=== PATIENT | male | born 1990 | race Caucasian/White ===

== ENCOUNTER 2017-05-26 17:31 | Inpatient (IN) | payer BC, MEDICAID ==
[2017-05-26] MEDS ORDERED: Ondansetron 4 MG/2 ML SDV IV PRN (17:56)
[2017-05-26] MEDS ORDERED: metroNIDAZOLE/Normal Saline 500 MG in Premix Bag 1 BAG IV SCH (18:00)
[2017-05-26] MEDS ORDERED: Insulin Aspart 100 Units/ML 3 ML Pen SUBCUT ONE (18:49)
[2017-05-26] MEDS: Sodium Chloride 0.9% 1,000 ML IV SCH (18:52)
[2017-05-26] MEDS: Morphine 2 MG/ML Syringe IVPUSH PRN (19:04)
[2017-05-26] MEDS: Ciprofloxacin in D5W 400 MG in Premix Bag 1 BAG IV SCH ×2 (19:07)
[2017-05-26] MEDS: Insulin Aspart 100 Units/ML 3 ML Pen SUBCUT SCH ×2 (20:34→22:15)
[2017-05-27] MEDS: Insulin Aspart 100 Units/ML 3 ML Pen SUBCUT SCH ×8 (02:33→21:36)
[2017-05-27] MEDS: Ciprofloxacin in D5W 400 MG in Premix Bag 1 BAG IV SCH ×6 (02:34→18:12)
[2017-05-27] MEDS: metroNIDAZOLE/Normal Saline 500 MG in Premix Bag 1 BAG IV SCH ×3 (03:23→19:45)
[2017-05-27] MEDS: Sodium Chloride 0.9% 1,000 ML IV SCH ×2 (05:29→14:17)
[2017-05-27] MEDS: Morphine 2 MG/ML Syringe IVPUSH PRN ×2 (09:26→21:44)
--- NOTE | 2017-05-27 10:00 | PCM.SURGPN ---
- General Info Date of Service: 05/27/17 POD#: 1 Functional Status: Reports: pain controlled - Review of Systems General: Reports: No Symptoms Musculoskeletal: Reports: other (leg pain is better. ) - Patient Data Vitals - most recent: Last Vital Signs Temp 36.4 C 05/27/17 08:00 Pulse 78 05/27/17 08:00 Resp 18 05/27/17 08:00 BP 122/83 05/27/17 08:00 Pulse Ox 97 05/27/17 08:00 Weight - most recent: 79.061 kg I&O - last 24 hours: Intake & Output 05/26/17 05/27/17 05/27/17 22:59 06:59 14:59 Intake Total 934 1133 Balance 934 1133 Lab Results last 24 hrs: Laboratory Results - last 24 hr 05/26/17 05/26/17 05/26/17 Range/Units 16:15 16:15 22:13 WBC 8.9 (4.5-12.0) X10-3/uL RBC 3.75 L (4.30-5.75) x10(6)uL Hgb 11.0 L (11.5-15.5) g/dL Hct 32.0 (30.0-51.3) % MCV 85.4 (80-96) fL MCH 29.2 (27.7-33.6) pg MCHC 34.2 (32.2-35.4) g/dL RDW 12.3 (11.5-15.5) % Plt Count 521 H (125-369) X10(3)uL MPV 7.3 L (7.4-10.4) fL Neut % (Auto) 74.6 (46-82) % Lymph % (Auto) 16.3 (13-37) % [place] % (Auto) 8.1 (4-12) % Eos % (Auto) 1 (1.0-5.0) % Baso % (Auto) 0 (0-2) % Neut # (Auto) 6.7 (1.6-8.3) # Lymph # (Auto) 1.4 (0.6-5.0) # [place] # (Auto) 0.7 (0.0-1.3) # Eos # (Auto) 0.1 (0.0-0.8) # Baso # (Auto) 0.0 (0.0-0.2) # Sodium 126 L (135-145) mmol/L Potassium 5.1 (3.5-5.3) mmol/L Chloride 90 L (100-110) mmol/L Carbon Dioxide 31 H (23-29) mmol/L BUN 20 (5-20) mg/dL Creatinine 1.2 (0.6-1.3) mg/dL Est Cr Clr Drug Dosing 79.72 mL/min Estimated GFR (MDRD) > 60 (>60) BUN/Creatinine Ratio 16.7 (9-20) Glucose 652 H* (80-116) mg/dL POC Glucose 284 H (80-116) mg/dL Calcium 8.6 (8.6-10.2) mg/dL Total Bilirubin 0.1 (0.1-1.3) mg/dL AST 16 (5-27) IU/L ALT 18 (14-26) IU/L Alkaline Phosphatase 179 H (56-112) IU/L Total Protein 8.6 H (6.0-8.0) g/dL Albumin 2.8 L (3.5-5.2) g/dL Globulin 5.8 g/dL Albumin/Globulin Ratio 0.5 05/27/17 05/27/17 05/27/17 Range/Units 02:29 06:12 09:49 WBC (4.5-12.0) X10-3/uL RBC (4.30-5.75) x10(6)uL Hgb (11.5-15.5) g/dL Hct (30.0-51.3) % MCV (80-96) fL MCH (27.7-33.6) pg MCHC (32.2-35.4) g/dL RDW (11.5-15.5) % Plt Count (125-369) X10(3)uL MPV (7.4-10.4) fL Neut % (Auto) (46-82) % Lymph % (Auto) (13-37) % [place] % (Auto) (4-12) % Eos % (Auto) (1.0-5.0) % Baso % (Auto) (0-2) % Neut # (Auto) (1.6-8.3) # Lymph # (Auto) (0.6-5.0) # [place] # (Auto) (0.0-1.3) # Eos # (Auto) (0.0-0.8) # Baso # (Auto) (0.0-0.2) # Sodium (135-145) mmol/L Potassium (3.5-5.3) mmol/L Chloride (100-110) mmol/L Carbon Dioxide (23-29) mmol/L BUN (5-20) mg/dL Creatinine (0.6-1.3) mg/dL Est Cr Clr Drug Dosing mL/min Estimated GFR (MDRD) (>60) BUN/Creatinine Ratio (9-20) Glucose (80-116) mg/dL POC Glucose 157 H D 195 H 213 H (80-116) mg/dL Calcium (8.6-10.2) mg/dL Total Bilirubin (0.1-1.3) mg/dL AST (5-27) IU/L ALT (14-26) IU/L Alkaline Phosphatase (56-112) IU/L Total Protein (6.0-8.0) g/dL Albumin (3.5-5.2) g/dL Globulin g/dL Albumin/Globulin Ratio Med Orders - Current: Current Medications Ciprofloxacin/Dextrose 400 mg/ (Premix) 200 mls @ 200 mls/hr IV Q[facility]H [facility] Last Admin: 05/27/17 09:41 Dose: 200 mls/hr Sodium Chloride (Normal Saline) 1,000 mls @ 150 mls/hr IV ASDIRECTED [facility] Last Admin: 05/27/17 05:29 Dose: 150 mls/hr Metronidazole 500 mg/ Premix 100 mls @ 100 mls/hr IV Q8H [facility] Last Admin: 05/27/17 03:23 Dose: 100 mls/hr Insulin Aspart (Novolog) 0 unit SUBCUT Q4H [facility] PRN Reason: Protocol Last Admin: 05/27/17 09:51 Dose: 6 units Morphine Sulfate (Morphine) 2 mg IVPUSH Q2H PRN PRN Reason: Pain (severe 7-10) Last Admin: 05/27/17 09:26 Dose: 2 mg Ondansetron HCl (Zofran) 4 mg IV Q6H PRN PRN Reason: Nausea/Vomiting Sodium Chloride (Saline Flush) 10 ml FLUSH ASDIRECTED PRN PRN Reason: Keep Vein Open Discontinued Medications Metronidazole 500 mg/ Premix 100 mls @ 100 mls/hr IV Q8H [facility] Last Admin: 05/26/17 20:36 Dose: 100 mls/hr Insulin Aspart (Novolog) 20 unit SUBCUT ONETIME ONE Stop: 05/26/17 18:50 Last Admin: 05/26/17 19:02 Dose: 20 units - Exam Wound/Incisions: drainage, erythema improving Lungs: Clear to auscultation, Normal respiratory effort Cardiovascular: Regular Rate, Regular Rhythm - Problem List & Annotations (1) Abscess of left lower extremity excluding foot SNOMED Code(s): 877122656 Code(s): L02.416 - CUTANEOUS ABSCESS OF LEFT LOWER LIMB Status: Acute Current Visit: Yes (2) Type 1 diabetes SNOMED Code(s): 58000223, 35291722 Code(s): E10.9 - TYPE 1 DIABETES MELLITUS WITHOUT COMPLICATIONS Status: Acute Current Visit: Yes Qualifiers: Diabetes mellitus complication detail: with other skin complication - Problem List Review Problem List Initiated/Reviewed/Updated: Yes - My Orders Last 24 Hours: Active Orders 24 hr Category Date Time Status Admission Status [Patient Status] [ADT] Routine ADT 05/26/17 17:36 Active Blood Glucose Check, Bedside [RC] Q4HPRN Care 05/26/17 18:00 Active Diabetes Education [RC] Click to Edit Care 05/26/17 17:57 Active Dressing Change [Wound Care] [RC] QSHIFT Care 05/26/17 20:18 Active Height and Weight [RC] UPON Care 05/26/17 17:56 Active Intake and Output [RC] 06,14,22 Care 05/26/17 17:57 Active Notify Provider Vital Signs [RC] ASDIRECTED Care 05/26/17 17:57 Active Notify Provider [RC] PRN Care 05/26/17 17:59 Active Oxygen Therapy [RC] PRN Care 05/26/17 17:56 Active Up ad Frida [RC] ASDIRECTED Care 05/26/17 17:56 Active VTE/DVT Education [RC] Per Unit Routine Care 05/26/17 17:56 Active Vital Signs [RC] 00,04,08,12,16,20 Care 05/26/17 17:56 Active Nothing per Oral Now Diet [DIET] Diet 05/26/17 Dinner Active Ciprofloxacin in D5W [Cipro in D5W 400 MG/200 ML] 400 Med 05/26/17 18:00 Active mg Premix Bag 1 bag IV Q8H Insulin Aspart [NovoLOG] Med 05/26/17 18:00 Active See Protocol SUBCUT Q4H Morphine Med 05/26/17 17:56 Active 2 mg IVPUSH Q2H PRN Ondansetron [Zofran] Med 05/26/17 17:56 Active 4 mg IV Q6H PRN Sodium Chloride 0.9% [Normal Saline] 1,000 ml Med 05/26/17 18:15 Active IV ASDIRECTED Sodium Chloride 0.9% [Saline Flush] Med 05/26/17 22:00 Active 10 ml FLUSH ASDIRECTED PRN metroNIDAZOLE/Normal Saline [Flagyl 500 MG in NS 100 ML Med 05/27/17 03:00 Active ] 500 mg Premix Bag 1 bag IV Q8H Glucose Management Sub Q Reflex [OM.PC] Click to Edit Oth 05/26/17 17:56 Ordered Resuscitation Status Routine Resus Stat 05/26/17 17:56 Ordered Medication Orders Ciprofloxacin/Dextrose 400 mg/ (Premix) 200 mls @ 200 mls/hr IV Q8H [facility] Last Admin: 05/27/17 09:41 Dose: 200 mls/hr Infusion: 05/27/17 03:34 Dose: 200 mls/hr Admin: 05/27/17 02:34 Dose: 200 mls/hr Infusion: 05/26/17 20:07 Dose: 200 mls/hr Admin: 05/26/17 19:07 Dose: 200 mls/hr Sodium Chloride (Normal Saline) 1,000 mls @ 150 mls/hr IV ASDIRECTED [facility] Last Admin: 05/27/17 05:29 Dose: 150 mls/hr Infusion: 05/27/17 01:33 Dose: 150 mls/hr Admin: 05/26/17 18:52 Dose: 150 mls/hr Metronidazole 500 mg/ Premix 100 mls @ 100 mls/hr IV Q8H [facility] Last Admin: 05/27/17 03:23 Dose: 100 mls/hr Insulin Aspart (Novolog) 0 unit SUBCUT Q4H [facility] PRN Reason: Protocol Last Admin: 05/27/17 09:51 Dose: 6 units Admin: 05/27/17 06:13 Dose: 3 units Admin: 05/27/17 02:33 Dose: 3 units Admin: 05/26/17 22:15 Dose: 9 units Admin: 05/26/17 20:34 Dose: Morphine Sulfate (Morphine) 2 mg IVPUSH Q2H PRN PRN Reason: Pain (severe 7-10) Last Admin: 05/27/17 09:26 Dose: 2 mg Admin: 05/26/17 19:04 Dose: 2 mg Ondansetron HCl (Zofran) 4 mg IV Q6H PRN PRN Reason: Nausea/Vomiting Sodium Chloride (Saline Flush) 10 ml FLUSH ASDIRECTED PRN PRN Reason: Keep Vein Open - Assessment Assessment (Free Text/Narrative):: cellulitis is markedly improved. dressing change was performed today. blood sugars appear to be better as well. - Plan Plan (Free Text/Narrative):: will feed today. continue sliding scale. start home insulin continue IV antibiotics
[2017-05-27] MEDS ORDERED: Insulin Detemir 100 Units/ML 3 ML Pen SUBCUT SCH (21:00)
[2017-05-28] MEDS: Ciprofloxacin in D5W 400 MG in Premix Bag 1 BAG IV SCH ×6 (02:08→18:08)
[2017-05-28] MEDS: Insulin Aspart 100 Units/ML 3 ML Pen SUBCUT SCH ×9 (02:09→21:39)
[2017-05-28] MEDS: metroNIDAZOLE/Normal Saline 500 MG in Premix Bag 1 BAG IV SCH ×3 (03:14→19:51)
[2017-05-28] MEDS: Sodium Chloride 0.9% 1,000 ML IV SCH (07:52)
--- NOTE | 2017-05-28 08:48 | PCM.SURGPN ---
- General Info Date of Service: 05/28/17 POD#: 2 Functional Status: Reports: pain controlled, tolerating diet, urinating. Denies : new symptoms - Review of Systems Pulmonary: Reports: no symptoms Cardiovascular: Reports: No Symptoms Gastrointestinal: Reports: No symptoms - Patient Data Vitals - most recent: Last Vital Signs Temp 36.4 C 05/28/17 07:55 Pulse 74 05/28/17 07:55 Resp 18 05/28/17 07:55 BP 128/91 H 05/28/17 07:55 Pulse Ox 97 05/28/17 07:55 Weight - most recent: 79.061 kg I&O - last 24 hours: Intake & Output 05/27/17 05/28/17 05/28/17 22:59 06:59 14:59 Intake Total 1200 1552 Balance 1200 1552 Lab Results last 24 hrs: Laboratory Results - last 24 hr 05/27/17 05/27/17 05/27/17 Range/Units 09:49 13:54 17:54 POC Glucose 213 H 301 H D 199 H D (80-116) mg/dL 05/27/17 05/28/17 05/28/17 Range/Units 21:31 02:07 05:58 POC Glucose 217 H 166 H 163 H (80-116) mg/dL Med Orders - Current: Current Medications Ciprofloxacin/Dextrose 400 mg/ (Premix) 200 mls @ 200 mls/hr IV Q8H [facility] Last Admin: 05/28/17 02:08 Dose: 200 mls/hr Metronidazole 500 mg/ Premix 100 mls @ 100 mls/hr IV Q8H [facility] Last Admin: 05/28/17 03:14 Dose: 100 mls/hr Insulin Aspart (Novolog) 0 unit SUBCUT Q4H [facility] PRN Reason: Protocol Last Admin: 05/28/17 05:59 Dose: 3 units Insulin Aspart (Novolog) 5 unit SUBCUT TIDMEALS [facility] Last Admin: 05/28/17 08:03 Dose: 5 unit Insulin Detemir (Levemir) 20 unit SUBCUT BEDTIME [facility] Last Admin: 05/27/17 21:35 Dose: 20 unit Ondansetron HCl (Zofran) 4 mg IV Q6H PRN PRN Reason: Nausea/Vomiting Sodium Chloride (Saline Flush) 10 ml FLUSH ASDIRECTED PRN PRN Reason: Keep Vein Open Discontinued Medications Sodium Chloride (Normal Saline) 1,000 mls @ 150 mls/hr IV ASDIRECTED [facility] Last Admin: 05/28/17 07:52 Dose: 150 mls/hr Metronidazole 500 mg/ Premix 100 mls @ 100 mls/hr IV Q8H [facility] Last Admin: 05/26/17 20:36 Dose: 100 mls/hr Insulin Aspart (Novolog) 20 unit SUBCUT ONETIME ONE Stop: 05/26/17 18:50 Last Admin: 05/26/17 19:02 Dose: 20 units Morphine Sulfate (Morphine) 2 mg IVPUSH Q2H PRN PRN Reason: Pain (severe 7-10) Last Admin: 05/27/17 21:44 Dose: 2 mg - Exam Wound/Incisions: dressing dry and intact, drainage (serous ). No: erythema General: alert, oriented Lungs: Clear to auscultation, Normal respiratory effort Cardiovascular: Regular Rate, Regular Rhythm Abdomen: bowel sounds present, soft, no tenderness Skin: warm, dry, intact Psy/Mental Status: alert - Problem List & Annotations (1) Abscess of left lower extremity excluding foot SNOMED Code(s): 790365347 Code(s): L02.416 - CUTANEOUS ABSCESS OF LEFT LOWER LIMB Status: Resolved Current Visit: Yes (2) Type 1 diabetes SNOMED Code(s): 07756437, 90606236 Code(s): E10.9 - TYPE 1 DIABETES MELLITUS WITHOUT COMPLICATIONS Status: Acute Current Visit: Yes Qualifiers: Diabetes mellitus complication detail: with other skin complication - Problem List Review Problem List Initiated/Reviewed/Updated: Yes - My Orders Last 24 Hours: Active Orders 24 hr Category Date Time Status Ambulate [RC] Q3HR Care 05/28/17 08:45 Ordered Notify Provider Consults [RC] ASDIRECTED Care 05/28/17 08:44 Ordered Consult to Physician [CONS] Routine Cons 05/28/17 08:43 Ordered Consistent Carbohydrate Diet [DIET] Diet 05/27/17 Lunch Active Insulin Aspart [NovoLOG] Med 05/27/17 12:00 Active 5 unit SUBCUT TIDMEALS Insulin Detemir [Levemir] Med 05/27/17 21:00 Active 20 unit SUBCUT BEDTIME Convert IV to Saline Lock [OM.PC] Routine Oth 05/28/17 08:44 Ordered Medication Orders Ciprofloxacin/Dextrose 400 mg/ (Premix) 200 mls @ 200 mls/hr IV Q8H [facility] Last Admin: 05/28/17 02:08 Dose: 200 mls/hr Infusion: 05/27/17 19:12 Dose: 200 mls/hr Admin: 05/27/17 18:12 Dose: 200 mls/hr Infusion: 05/27/17 10:41 Dose: 200 mls/hr Admin: 05/27/17 09:41 Dose: 200 mls/hr Infusion: 05/27/17 03:34 Dose: 200 mls/hr Admin: 05/27/17 02:34 Dose: 200 mls/hr Infusion: 05/26/17 20:07 Dose: 200 mls/hr Admin: 05/26/17 19:07 Dose: 200 mls/hr Metronidazole 500 mg/ Premix 100 mls @ 100 mls/hr IV Q8H [facility] Last Admin: 05/28/17 03:14 Dose: 100 mls/hr Infusion: 05/27/17 20:45 Dose: 100 mls/hr Admin: 05/27/17 19:45 Dose: 100 mls/hr Infusion: 05/27/17 11:58 Dose: 100 mls/hr Admin: 05/27/17 10:58 Dose: 100 mls/hr Infusion: 05/27/17 04:23 Dose: 100 mls/hr Admin: 05/27/17 03:23 Dose: 100 mls/hr Insulin Aspart (Novolog) 0 unit SUBCUT Q4H [facility] PRN Reason: Protocol Last Admin: 05/28/17 05:59 Dose: 3 units Admin: 05/28/17 02:09 Dose: 3 units Admin: 05/27/17 21:36 Dose: 6 units Admin: 05/27/17 18:12 Dose: 3 units Admin: 05/27/17 13:56 Dose: 12 units Admin: 05/27/17 09:51 Dose: 6 units Admin: 05/27/17 06:13 Dose: 3 units Admin: 05/27/17 02:33 Dose: 3 units Admin: 05/26/17 22:15 Dose: 9 units Admin: 05/26/17 20:34 Dose: Insulin Aspart (Novolog) 5 unit SUBCUT TIDMEALS [facility] Last Admin: 05/28/17 08:03 Dose: 5 unit Admin: 05/27/17 18:13 Dose: 5 unit Admin: 05/27/17 11:45 Dose: 5 unit Insulin Detemir (Levemir) 20 unit SUBCUT BEDTIME [facility] Last Admin: 05/27/17 21:35 Dose: 20 unit Ondansetron HCl (Zofran) 4 mg IV Q6H PRN PRN Reason: Nausea/Vomiting Sodium Chloride (Saline Flush) 10 ml FLUSH ASDIRECTED PRN PRN Reason: Keep Vein Open - Assessment Assessment (Free Text/Narrative):: infection is resolving glucose is still high - Plan Plan (Free Text/Narrative):: consult to Dr Boogie for insulin iv to heplock ambulate. anticipate d/c when we get glucose under control
--- NOTE | 2017-05-28 10:38 | PN ---
DATE SEEN: 05/28/2017 CHIEF COMPLAINT: Type 1 diabetes. HISTORY OF PRESENT ILLNESS: This is a 26-year-old male, admitted by Dr. Kerr for wound on the left leg. The wound which was an abscess has been drained. He is currently on IV ciprofloxacin. His sugars however have been uncontrolled. He has a history of type 1 diabetes, previously not well treated because of insurance reasons. At home, he was using 20 units of Toujeo and 5 units of NovoLog. Sugars have been up going to 300, this morning they were 163. He is now on a strict diabetic diet. He denies any fever or chills. SOCIAL HISTORY: He quit smoking about a month ago. ALLERGIES: No known allergies. OBJECTIVE: VITAL SIGNS: His blood pressure 128/91. He is afebrile. MENTAL STATUS: Alert. CARDIOVASCULAR: Normal. RESPIRATORY SYSTEM: Normal. LABORATORY DATA: His sugars were 163 this morning, 300 last night. IMPRESSION: 1. Type 1 diabetes, uncontrolled. 2. Hyperlipidemia. 3. Left leg abscess. 4. Tobacco abuse syndrome. PLAN: He had an ultrasound of the weekend over last week that showed no peripheral vascular disease. I had a discussion with him and recommended smoking cessation totally and also strict diabetic diet. I increased his long- acting to 30 units at night and we will keep his NovoLog at 5 units with meals but also keep him on a sliding scale, we can get additional insulin. I restarted his fenofibrate and Lipitor. We will plan to see him in the clinic once he is discharged. I wish to thank Dr. Kerr for involving me in the care of . /[id number] SUNDAR/SHARANL
[2017-05-28] MEDS: Sodium Chloride 0.9% 10 ML Syringe FLUSH PRN (19:55)
[2017-05-28] MEDS ORDERED: atorvaSTATin 20 MG Tab PO SCH (21:00)
[2017-05-28] MEDS ORDERED: Insulin Detemir 100 Units/ML 3 ML Pen SUBCUT SCH (21:00)
[2017-05-29] MEDS: Ciprofloxacin in D5W 400 MG in Premix Bag 1 BAG IV SCH ×4 (02:06→11:27)
[2017-05-29] MEDS: Insulin Aspart 100 Units/ML 3 ML Pen SUBCUT SCH ×4 (02:10→11:28)
[2017-05-29] MEDS: metroNIDAZOLE/Normal Saline 500 MG in Premix Bag 1 BAG IV SCH (03:25)
[2017-05-29] MEDS: Sodium Chloride 0.9% 10 ML Syringe FLUSH PRN (03:27)
[2017-05-29] MEDS ORDERED: Fenofibrate Nanocrystallized 145 MG Tab PO SCH (09:00)
[2017-05-29 09:16] VITALS: BP 122/88
--- NOTE | 2017-05-29 09:53 | PCM.SURGPN ---
- General Info Date of Service: 05/29/17 Functional Status: Reports: pain controlled, tolerating diet, ambulating, urinating. Denies: new symptoms - Review of Systems Musculoskeletal: Reports: no symptoms - Patient Data Vitals - most recent: Last Vital Signs Temp 36.7 C 05/29/17 08:00 Pulse 122 H 05/29/17 08:00 Resp 16 05/29/17 08:00 BP 122/88 05/29/17 08:00 Pulse Ox 100 05/29/17 08:00 Weight - most recent: 79.061 kg I&O - last 24 hours: Intake & Output 05/28/17 05/29/17 05/29/17 22:59 06:59 14:59 Intake Total 611 515 Output Total 600 Balance 611 -85 Lab Results last 24 hrs: Laboratory Results - last 24 hr 05/28/17 05/28/17 05/28/17 Range/Units 10:15 14:06 18:10 WBC (4.5-12.0) X10-3/uL RBC (4.30-5.75) x10(6)uL Hgb (11.5-15.5) g/dL Hct (30.0-51.3) % MCV (80-96) fL MCH (27.7-33.6) pg MCHC (32.2-35.4) g/dL RDW (11.5-15.5) % Plt Count (125-369) X10(3)uL MPV (7.4-10.4) fL Neut % (Auto) (46-82) % Lymph % (Auto) (13-37) % [place] % (Auto) (4-12) % Eos % (Auto) (1.0-5.0) % Baso % (Auto) (0-2) % Neut # (Auto) (1.6-8.3) # Lymph # (Auto) (0.6-5.0) # [place] # (Auto) (0.0-1.3) # Eos # (Auto) (0.0-0.8) # Baso # (Auto) (0.0-0.2) # ESR (0-15) mm/hr Sodium (135-145) mmol/L Potassium (3.5-5.3) mmol/L Chloride (100-110) mmol/L Carbon Dioxide (23-29) mmol/L BUN (5-20) mg/dL Creatinine (0.6-1.3) mg/dL Est Cr Clr Drug Dosing mL/min Estimated GFR (MDRD) (>60) BUN/Creatinine Ratio (9-20) Glucose (80-116) mg/dL POC Glucose 205 H 238 H 342 H D (80-116) mg/dL Hemoglobin A1c (4.0-6.0) % Calcium (8.6-10.2) mg/dL C-Reactive Protein (0.0-1.0) mg/dL 05/28/17 05/29/17 05/29/17 Range/Units 21:31 02:05 06:04 WBC (4.5-12.0) X10-3/uL RBC (4.30-5.75) x10(6)uL Hgb (11.5-15.5) g/dL Hct (30.0-51.3) % MCV (80-96) fL MCH (27.7-33.6) pg MCHC (32.2-35.4) g/dL RDW (11.5-15.5) % Plt Count (125-369) X10(3)uL MPV (7.4-10.4) fL Neut % (Auto) (46-82) % Lymph % (Auto) (13-37) % [place] % (Auto) (4-12) % Eos % (Auto) (1.0-5.0) % Baso % (Auto) (0-2) % Neut # (Auto) (1.6-8.3) # Lymph # (Auto) (0.6-5.0) # [place] # (Auto) (0.0-1.3) # Eos # (Auto) (0.0-0.8) # Baso # (Auto) (0.0-0.2) # ESR (0-15) mm/hr Sodium (135-145) mmol/L Potassium (3.5-5.3) mmol/L Chloride (100-110) mmol/L Carbon Dioxide (23-29) mmol/L BUN (5-20) mg/dL Creatinine (0.6-1.3) mg/dL Est Cr Clr Drug Dosing mL/min Estimated GFR (MDRD) (>60) BUN/Creatinine Ratio (9-20) Glucose (80-116) mg/dL POC Glucose 332 H 214 H D 144 H (80-116) mg/dL Hemoglobin A1c (4.0-6.0) % Calcium (8.6-10.2) mg/dL C-Reactive Protein (0.0-1.0) mg/dL 05/29/17 05/29/17 05/29/17 Range/Units 06:35 06:35 06:35 WBC 7.8 (4.5-12.0) X10-3/uL RBC 3.51 L (4.30-5.75) x10(6)uL Hgb 10.3 L (11.5-15.5) g/dL Hct 30.1 (30.0-51.3) % MCV 85.6 (80-96) fL MCH 29.3 (27.7-33.6) pg MCHC 34.2 (32.2-35.4) g/dL RDW 12.1 (11.5-15.5) % Plt Count 452 H (125-369) X10(3)uL MPV 7.4 (7.4-10.4) fL Neut % (Auto) 56.0 (46-82) % Lymph % (Auto) 33.3 (13-37) % [place] % (Auto) 8.1 (4-12) % Eos % (Auto) 2 (1.0-5.0) % Baso % (Auto) 1 (0-2) % Neut # (Auto) 4.4 (1.6-8.3) # Lymph # (Auto) 2.6 (0.6-5.0) # [place] # (Auto) 0.6 (0.0-1.3) # Eos # (Auto) 0.1 (0.0-0.8) # Baso # (Auto) 0.1 (0.0-0.2) # ESR > 140 H (0-15) mm/hr Sodium 137 D (135-145) mmol/L Potassium 3.7 D (3.5-5.3) mmol/L Chloride 100 D (100-110) mmol/L Carbon Dioxide 31 H (23-29) mmol/L BUN 14 (5-20) mg/dL Creatinine 0.7 (0.6-1.3) mg/dL Est Cr Clr Drug Dosing 136.67 mL/min Estimated GFR (MDRD) > 60 (>60) BUN/Creatinine Ratio 20.0 (9-20) Glucose 143 H D (80-116) mg/dL POC Glucose (80-116) mg/dL Hemoglobin A1c 15.4 H (4.0-6.0) % Calcium 8.5 L (8.6-10.2) mg/dL C-Reactive Protein 1.3 H (0.0-1.0) mg/dL 05/29/17 Range/Units 09:32 WBC (4.5-12.0) X10-3/uL RBC (4.30-5.75) x10(6)uL Hgb (11.5-15.5) g/dL Hct (30.0-51.3) % MCV (80-96) fL MCH (27.7-33.6) pg MCHC (32.2-35.4) g/dL RDW (11.5-15.5) % Plt Count (125-369) X10(3)uL MPV (7.4-10.4) fL Neut % (Auto) (46-82) % Lymph % (Auto) (13-37) % [place] % (Auto) (4-12) % Eos % (Auto) (1.0-5.0) % Baso % (Auto) (0-2) % Neut # (Auto) (1.6-8.3) # Lymph # (Auto) (0.6-5.0) # [place] # (Auto) (0.0-1.3) # Eos # (Auto) (0.0-0.8) # Baso # (Auto) (0.0-0.2) # ESR (0-15) mm/hr Sodium (135-145) mmol/L Potassium (3.5-5.3) mmol/L Chloride (100-110) mmol/L Carbon Dioxide (23-29) mmol/L BUN (5-20) mg/dL Creatinine (0.6-1.3) mg/dL Est Cr Clr Drug Dosing mL/min Estimated GFR (MDRD) (>60) BUN/Creatinine Ratio (9-20) Glucose (80-116) mg/dL POC Glucose 146 H (80-116) mg/dL Hemoglobin A1c (4.0-6.0) % Calcium (8.6-10.2) mg/dL C-Reactive Protein (0.0-1.0) mg/dL Med Orders - Current: Current Medications Atorvastatin Calcium (Lipitor) 20 mg PO BEDTIME [facility] Last Admin: 05/28/17 21:40 Dose: 20 mg Fenofibrate (Tricor) 145 mg PO DAILY [facility] Last Admin: 05/29/17 09:30 Dose: 145 mg Ciprofloxacin/Dextrose 400 mg/ (Premix) 200 mls @ 200 mls/hr IV Q8H [facility] Last Admin: 05/29/17 02:06 Dose: 200 mls/hr Metronidazole 500 mg/ Premix 100 mls @ 100 mls/hr IV Q8H [facility] Last Admin: 05/29/17 03:25 Dose: 100 mls/hr Insulin Aspart (Novolog) 0 unit SUBCUT Q4H [facility] PRN Reason: Protocol Last Admin: 05/29/17 06:04 Dose: Not Given Insulin Aspart (Novolog) 5 unit SUBCUT TIDMEALS [facility] Last Admin: 05/28/17 18:13 Dose: 5 unit Insulin Detemir (Levemir) 30 unit SUBCUT BEDTIME [facility] Last Admin: 05/28/17 21:33 Dose: 30 units Ondansetron HCl (Zofran) 4 mg IV Q6H PRN PRN Reason: Nausea/Vomiting Sodium Chloride (Saline Flush) 10 ml FLUSH ASDIRECTED PRN PRN Reason: Keep Vein Open Last Admin: 05/29/17 03:27 Dose: 10 ml Discontinued Medications Sodium Chloride (Normal Saline) 1,000 mls @ 150 mls/hr IV ASDIRECTED [facility] Last Admin: 05/28/17 07:52 Dose: 150 mls/hr Metronidazole 500 mg/ Premix 100 mls @ 100 mls/hr IV Q8H [facility] Last Admin: 05/26/17 20:36 Dose: 100 mls/hr Insulin Aspart (Novolog) 20 unit SUBCUT ONETIME ONE Stop: 05/26/17 18:50 Last Admin: 05/26/17 19:02 Dose: 20 units Insulin Detemir (Levemir) 20 unit SUBCUT BEDTIME [facility] Last Admin: 05/27/17 21:35 Dose: 20 unit Morphine Sulfate (Morphine) 2 mg IVPUSH Q2H PRN PRN Reason: Pain (severe 7-10) Last Admin: 05/27/17 21:44 Dose: 2 mg - Exam Wound/Incisions: healing well, drainage. No: erythema Lungs: Clear to auscultation, Normal respiratory effort Cardiovascular: Regular Rate, Regular Rhythm - Problem List & Annotations (1) Abscess of left lower extremity excluding foot SNOMED Code(s): 265911486 Code(s): L02.416 - CUTANEOUS ABSCESS OF LEFT LOWER LIMB Status: Resolved Current Visit: Yes (2) Type 1 diabetes SNOMED Code(s): 45211783, 22204054 Code(s): E10.9 - TYPE 1 DIABETES MELLITUS WITHOUT COMPLICATIONS Status: Acute Current Visit: Yes Qualifiers: Diabetes mellitus complication detail: with other skin complication - Problem List Review Problem List Initiated/Reviewed/Updated: Yes - My Orders Last 24 Hours: Active Orders 24 hr Category Date Time Status Ready for Discharge [RC] PER UNIT ROUTINE Care 05/29/17 08:55 Active Fenofibrate Nanocrystallized [Tricor] Med 05/29/17 09:00 Active 145 mg PO DAILY Insulin Detemir [Levemir] Med 05/28/17 21:00 Active 30 unit SUBCUT BEDTIME atorvaSTATin [Lipitor] Med 05/28/17 21:00 Active 20 mg PO BEDTIME Medication Orders Atorvastatin Calcium (Lipitor) 20 mg PO BEDTIME [facility] Last Admin: 05/28/17 21:40 Dose: 20 mg Fenofibrate (Tricor) 145 mg PO DAILY [facility] Last Admin: 05/29/17 09:30 Dose: 145 mg Ciprofloxacin/Dextrose 400 mg/ (Premix) 200 mls @ 200 mls/hr IV Q8H [facility] Last Admin: 05/29/17 02:06 Dose: 200 mls/hr Infusion: 05/28/17 19:08 Dose: 200 mls/hr Admin: 05/28/17 18:08 Dose: 200 mls/hr Infusion: 05/28/17 11:04 Dose: 200 mls/hr Admin: 05/28/17 10:04 Dose: 200 mls/hr Infusion: 05/28/17 03:08 Dose: 200 mls/hr Admin: 05/28/17 02:08 Dose: 200 mls/hr Infusion: 05/27/17 19:12 Dose: 200 mls/hr Admin: 05/27/17 18:12 Dose: 200 mls/hr Infusion: 05/27/17 10:41 Dose: 200 mls/hr Admin: 05/27/17 09:41 Dose: 200 mls/hr Infusion: 05/27/17 03:34 Dose: 200 mls/hr Admin: 05/27/17 02:34 Dose: 200 mls/hr Infusion: 05/26/17 20:07 Dose: 200 mls/hr Admin: 05/26/17 19:07 Dose: 200 mls/hr Metronidazole 500 mg/ Premix 100 mls @ 100 mls/hr IV Q8H [facility] Last Admin: 05/29/17 03:25 Dose: 100 mls/hr Infusion: 05/28/17 20:51 Dose: 100 mls/hr Admin: 05/28/17 19:51 Dose: 100 mls/hr Infusion: 05/28/17 12:12 Dose: 100 mls/hr Admin: 05/28/17 11:12 Dose: 100 mls/hr Infusion: 05/28/17 04:14 Dose: 100 mls/hr Admin: 05/28/17 03:14 Dose: 100 mls/hr Infusion: 05/27/17 20:45 Dose: 100 mls/hr Admin: 05/27/17 19:45 Dose: 100 mls/hr Infusion: 05/27/17 11:58 Dose: 100 mls/hr Admin: 05/27/17 10:58 Dose: 100 mls/hr Infusion: 05/27/17 04:23 Dose: 100 mls/hr Admin: 05/27/17 03:23 Dose: 100 mls/hr Insulin Aspart (Novolog) 0 unit SUBCUT Q4H [facility] PRN Reason: Protocol Last Admin: 05/29/17 06:04 Dose: Admin: 05/29/17 02:10 Dose: 6 units Admin: 05/28/17 21:39 Dose: 12 units Admin: 05/28/17 18:19 Dose: 12 units Admin: 05/28/17 14:09 Dose: 6 units Admin: 05/28/17 10:16 Dose: 6 units Admin: 05/28/17 05:59 Dose: 3 units Admin: 05/28/17 02:09 Dose: 3 units Admin: 05/27/17 21:36 Dose: 6 units Admin: 05/27/17 18:12 Dose: 3 units Admin: 05/27/17 13:56 Dose: 12 units Admin: 05/27/17 09:51 Dose: 6 units Admin: 05/27/17 06:13 Dose: 3 units Admin: 05/27/17 02:33 Dose: 3 units Admin: 05/26/17 22:15 Dose: 9 units Admin: 05/26/17 20:34 Dose: Insulin Aspart (Novolog) 5 unit SUBCUT TIDMEALS [facility] Last Admin: 05/28/17 18:13 Dose: 5 unit Admin: 05/28/17 14:10 Dose: 5 unit Admin: 05/28/17 08:03 Dose: 5 unit Admin: 05/27/17 18:13 Dose: 5 unit Admin: 05/27/17 11:45 Dose: 5 unit Insulin Detemir (Levemir) 30 unit SUBCUT BEDTIME [facility] Last Admin: 05/28/17 21:33 Dose: 30 units Ondansetron HCl (Zofran) 4 mg IV Q6H PRN PRN Reason: Nausea/Vomiting Sodium Chloride (Saline Flush) 10 ml FLUSH ASDIRECTED PRN PRN Reason: Keep Vein Open Last Admin: 05/29/17 03:27 Dose: 10 ml Admin: 05/28/17 19:55 Dose: 10 ml - Assessment Assessment (Free Text/Narrative):: ready for discharge - Plan Plan (Free Text/Narrative):: will send home on oral antibiotics. insulin management per Dr Boogie's plan.
--- NOTE | 2017-05-29 09:58 | PCM.DCSUM1 ---
Discharge Summary - Hospital Course Free Text/Narrative:: Pt admitted and placed on IV antibiotics. Leg demonstrated marked improvement in 12 hours and continued to do so during his admission. Erythema was completely resolved by day of discharge. Daily dressing changes were performed and on day of discharge was converted to Aqua[employer]el Ag. Dr Boogie was consulted with regards to his sugars and a plan formulated. He will see him after discharge. - Discharge Data Discharge Date: 05/29/17 Discharge Disposition: Home, Self-Care 01 Condition: Good - Discharge Diagnosis/Problem(s) (1) Abscess of left lower extremity excluding foot SNOMED Code(s): 646416885 ICD Code: L02.416 - CUTANEOUS ABSCESS OF LEFT LOWER LIMB Status: Resolved Current Visit: Yes (2) Type 1 diabetes SNOMED Code(s): 16102451, 70679874 ICD Code: E10.9 - TYPE 1 DIABETES MELLITUS WITHOUT COMPLICATIONS Status: Acute Current Visit: Yes Qualifiers: Diabetes mellitus complication detail: with other skin complication - Patient Summary/Data Consults: Consultations 05/28/17 08:43 Consult to Physician [CONS] Routine Consulting Provider: Isac Boogie Courtesy Call Completed to Consulting Physician: Yes Reason for Consult: Pt needs adjustment of his insulin - Patient Instructions Diet: Diabetic Diet Activity: No Strenuous Activities, Rest and Relax Today Driving: Do Not Drive Showering/Bathing: May Shower Wound/Incision Care: Change Dressing Daily Notify Provider of: Fever, Increased Pain, Swelling and Redness - Discharge Plan Prescriptions/Med Rec: Ciprofloxacin HCl [Cipro] 500 mg PO BID #28 tablet metroNIDAZOLE [Flagyl] 500 mg PO Q8H #21 tab Home Medications: Home Meds Acetaminophen/HYDROcodone [[place] 325-5 MG] 1 tab PO Q6H PRN 05/26/17 [History] Fenofibrate Nanocrystallized [Tricor] 145 mg PO DAILY 05/26/17 [History] Insulin Aspart [Novolog] 5 unit SQ TIDMEALS 05/26/17 [History] Insulin Glargine,Hum.Rec.Anlog [Touni Solostar] 20 units SQ BEDTIME 05/26/17 [ History] atorvaSTATin [Lipitor] 20 mg PO BEDTIME 05/26/17 [History] Ciprofloxacin HCl [Cipro] 500 mg PO BID #28 tablet 05/29/17 [Rx] metroNIDAZOLE [Flagyl] 500 mg PO Q8H #21 tab 05/29/17 [Rx] Patient Handouts: Type 1 Diabetes Mellitus, Adult, How to Change Your Dressing , Twru-ts-Tact, Blood Glucose Monitoring, Adult Referrals: Jaxson Kerr MD [Physician] - 06/01/17 3:30 pm - Discharge Summary/Plan Comment DC Time >30 min.: No - Patient Data Vitals - Most Recent: Last Vital Signs Temp 36.7 C 05/29/17 08:00 Pulse 122 H 05/29/17 08:00 Resp 16 05/29/17 08:00 BP 122/88 05/29/17 08:00 Pulse Ox 100 05/29/17 08:00 Weight - Most Recent: 79.061 kg I&O - Last 24 hours: Intake & Output 05/28/17 05/29/17 05/29/17 22:59 06:59 14:59 Intake Total 611 515 Output Total 600 Balance 611 -85 Lab Results - Last 24 hrs: Laboratory Results - last 24 hr 05/28/17 05/28/17 05/28/17 Range/Units 10:15 14:06 18:10 WBC (4.5-12.0) X10-3/uL RBC (4.30-5.75) x10(6)uL Hgb (11.5-15.5) g/dL Hct (30.0-51.3) % MCV (80-96) fL MCH (27.7-33.6) pg MCHC (32.2-35.4) g/dL RDW (11.5-15.5) % Plt Count (125-369) X10(3)uL MPV (7.4-10.4) fL Neut % (Auto) (46-82) % Lymph % (Auto) (13-37) % [place] % (Auto) (4-12) % Eos % (Auto) (1.0-5.0) % Baso % (Auto) (0-2) % Neut # (Auto) (1.6-8.3) # Lymph # (Auto) (0.6-5.0) # [place] # (Auto) (0.0-1.3) # Eos # (Auto) (0.0-0.8) # Baso # (Auto) (0.0-0.2) # ESR (0-15) mm/hr Sodium (135-145) mmol/L Potassium (3.5-5.3) mmol/L Chloride (100-110) mmol/L Carbon Dioxide (23-29) mmol/L BUN (5-20) mg/dL Creatinine (0.6-1.3) mg/dL Est Cr Clr Drug Dosing mL/min Estimated GFR (MDRD) (>60) BUN/Creatinine Ratio (9-20) Glucose (80-116) mg/dL POC Glucose 205 H 238 H 342 H D (80-116) mg/dL Hemoglobin A1c (4.0-6.0) % Calcium (8.6-10.2) mg/dL C-Reactive Protein (0.0-1.0) mg/dL 05/28/17 05/29/17 05/29/17 Range/Units 21:31 02:05 06:04 WBC (4.5-12.0) X10-3/uL RBC (4.30-5.75) x10(6)uL Hgb (11.5-15.5) g/dL Hct (30.0-51.3) % MCV (80-96) fL MCH (27.7-33.6) pg MCHC (32.2-35.4) g/dL RDW (11.5-15.5) % Plt Count (125-369) X10(3)uL MPV (7.4-10.4) fL Neut % (Auto) (46-82) % Lymph % (Auto) (13-37) % [place] % (Auto) (4-12) % Eos % (Auto) (1.0-5.0) % Baso % (Auto) (0-2) % Neut # (Auto) (1.6-8.3) # Lymph # (Auto) (0.6-5.0) # [place] # (Auto) (0.0-1.3) # Eos # (Auto) (0.0-0.8) # Baso # (Auto) (0.0-0.2) # ESR (0-15) mm/hr Sodium (135-145) mmol/L Potassium (3.5-5.3) mmol/L Chloride (100-110) mmol/L Carbon Dioxide (23-29) mmol/L BUN (5-20) mg/dL Creatinine (0.6-1.3) mg/dL Est Cr Clr Drug Dosing mL/min Estimated GFR (MDRD) (>60) BUN/Creatinine Ratio (9-20) Glucose (80-116) mg/dL POC Glucose 332 H 214 H D 144 H (80-116) mg/dL Hemoglobin A1c (4.0-6.0) % Calcium (8.6-10.2) mg/dL C-Reactive Protein (0.0-1.0) mg/dL 05/29/17 05/29/17 05/29/17 Range/Units 06:35 06:35 06:35 WBC 7.8 (4.5-12.0) X10-3/uL RBC 3.51 L (4.30-5.75) x10(6)uL Hgb 10.3 L (11.5-15.5) g/dL Hct 30.1 (30.0-51.3) % MCV 85.6 (80-96) fL MCH 29.3 (27.7-33.6) pg MCHC 34.2 (32.2-35.4) g/dL RDW 12.1 (11.5-15.5) % Plt Count 452 H (125-369) X10(3)uL MPV 7.4 (7.4-10.4) fL Neut % (Auto) 56.0 (46-82) % Lymph % (Auto) 33.3 (13-37) % [place] % (Auto) 8.1 (4-12) % Eos % (Auto) 2 (1.0-5.0) % Baso % (Auto) 1 (0-2) % Neut # (Auto) 4.4 (1.6-8.3) # Lymph # (Auto) 2.6 (0.6-5.0) # [place] # (Auto) 0.6 (0.0-1.3) # Eos # (Auto) 0.1 (0.0-0.8) # Baso # (Auto) 0.1 (0.0-0.2) # ESR > 140 H (0-15) mm/hr Sodium 137 D (135-145) mmol/L Potassium 3.7 D (3.5-5.3) mmol/L Chloride 100 D (100-110) mmol/L Carbon Dioxide 31 H (23-29) mmol/L BUN 14 (5-20) mg/dL Creatinine 0.7 (0.6-1.3) mg/dL Est Cr Clr Drug Dosing 136.67 mL/min Estimated GFR (MDRD) > 60 (>60) BUN/Creatinine Ratio 20.0 (9-20) Glucose 143 H D (80-116) mg/dL POC Glucose (80-116) mg/dL Hemoglobin A1c 15.4 H (4.0-6.0) % Calcium 8.5 L (8.6-10.2) mg/dL C-Reactive Protein 1.3 H (0.0-1.0) mg/dL 05/29/17 Range/Units 09:32 WBC (4.5-12.0) X10-3/uL RBC (4.30-5.75) x10(6)uL Hgb (11.5-15.5) g/dL Hct (30.0-51.3) % MCV (80-96) fL MCH (27.7-33.6) pg MCHC (32.2-35.4) g/dL RDW (11.5-15.5) % Plt Count (125-369) X10(3)uL MPV (7.4-10.4) fL Neut % (Auto) (46-82) % Lymph % (Auto) (13-37) % [place] % (Auto) (4-12) % Eos % (Auto) (1.0-5.0) % Baso % (Auto) (0-2) % Neut # (Auto) (1.6-8.3) # Lymph # (Auto) (0.6-5.0) # [place] # (Auto) (0.0-1.3) # Eos # (Auto) (0.0-0.8) # Baso # (Auto) (0.0-0.2) # ESR (0-15) mm/hr Sodium (135-145) mmol/L Potassium (3.5-5.3) mmol/L Chloride (100-110) mmol/L Carbon Dioxide (23-29) mmol/L BUN (5-20) mg/dL Creatinine (0.6-1.3) mg/dL Est Cr Clr Drug Dosing mL/min Estimated GFR (MDRD) (>60) BUN/Creatinine Ratio (9-20) Glucose (80-116) mg/dL POC Glucose 146 H (80-116) mg/dL Hemoglobin A1c (4.0-6.0) % Calcium (8.6-10.2) mg/dL C-Reactive Protein (0.0-1.0) mg/dL Med Orders - Current: Current Medications Atorvastatin Calcium (Lipitor) 20 mg PO BEDTIME [facility] Last Admin: 05/28/17 21:40 Dose: 20 mg Fenofibrate (Tricor) 145 mg PO DAILY [facility] Last Admin: 05/29/17 09:30 Dose: 145 mg Ciprofloxacin/Dextrose 400 mg/ (Premix) 200 mls @ 200 mls/hr IV Q8H [facility] Last Admin: 05/29/17 02:06 Dose: 200 mls/hr Metronidazole 500 mg/ Premix 100 mls @ 100 mls/hr IV Q8H [facility] Last Admin: 05/29/17 03:25 Dose: 100 mls/hr Insulin Aspart (Novolog) 0 unit SUBCUT Q4H [facility] PRN Reason: Protocol Last Admin: 05/29/17 06:04 Dose: Not Given Insulin Aspart (Novolog) 5 unit SUBCUT TIDMEALS [facility] Last Admin: 05/28/17 18:13 Dose: 5 unit Insulin Detemir (Levemir) 30 unit SUBCUT BEDTIME [facility] Last Admin: 05/28/17 21:33 Dose: 30 units Ondansetron HCl (Zofran) 4 mg IV Q6H PRN PRN Reason: Nausea/Vomiting Sodium Chloride (Saline Flush) 10 ml FLUSH ASDIRECTED PRN PRN Reason: Keep Vein Open Last Admin: 05/29/17 03:27 Dose: 10 ml Discontinued Medications Sodium Chloride (Normal Saline) 1,000 mls @ 150 mls/hr IV ASDIRECTED [facility] Last Admin: 05/28/17 07:52 Dose: 150 mls/hr Metronidazole 500 mg/ Premix 100 mls @ 100 mls/hr IV Q8H [facility] Last Admin: 05/26/17 20:36 Dose: 100 mls/hr Insulin Aspart (Novolog) 20 unit SUBCUT ONETIME ONE Stop: 05/26/17 18:50 Last Admin: 05/26/17 19:02 Dose: 20 units Insulin Detemir (Levemir) 20 unit SUBCUT BEDTIME [facility] Last Admin: 05/27/17 21:35 Dose: 20 unit Morphine Sulfate (Morphine) 2 mg IVPUSH Q2H PRN PRN Reason: Pain (severe 7-10) Last Admin: 05/27/17 21:44 Dose: 2 mg *Q Meaningful Use (DIS) - VTE *Q VTE Criteria *Q: - Stroke *Q Stroke Criteria *Q: - AMI *Q AMI Criteria *Q:
== END 2017-05-29 10:55 | disposition home or self-care (01) | DRG 420 ==
LOC: FB.MS 17:31
PROVIDERS: ADMIT Surgery; ATTEND Surgery
DX: E10.65 Type 1 diabetes mellitus with hyperglycemia (principal); E10.628 Type 1 diabetes mellitus with other skin complications; L02.416 Cutaneous abscess of left lower limb; B95.61 Methicillin susceptible Staphylococcus aureus infection as the cause of diseases classified elsewhere; Z79.4 Long term (current) use of insulin; E78.5 Hyperlipidemia, unspecified; Z87.891 Personal history of nicotine dependence
CPT/HCPCS: 36415; 80048; 80053; 82962; 83036; 85025; 85651; 86140; A9270-GY; J0744; J2270; J7040; J7050

== ENCOUNTER 2018-08-23 00:06 | Emergency (ER) | payer MEDICAID ==
[2018-08-23] MEDS ORDERED: Diphtheria,Pertussis(Acell),Tetanus Vaccine 0.5 ML SDV IM ONE (00:48)
[2018-08-23 02:25] LABS: ACETAMINOPHEN < 2 ug/mL (10-30)
--- NOTE | 2018-08-23 03:22 | EDM.PDOC ---
ED HPI GENERAL MEDICAL PROBLEM - General Chief Complaint: Laceration Stated Complaint: LT WRIST LAC Time Seen by Provider: 08/23/18 00:35 Source of Information: Reports: Patient History Limitations: Reports: No Limitations - History of Present Illness INITIAL COMMENTS - FREE TEXT/NARRATIVE: c/o L wrist lac pt states he put his hand in his toolbox and cut his wrist on sharp objects, he denies intent of self harm however, there are 8-9 parallel lines within 1 cm of each other that were self inflicted and not caused by an object with 8-9 blades in cross proximity to each other no prior h/o SI or psych evaluation he was reserved and seemed somewhat angry, police were notified and stood in hallway when I explained that he would need further psych evaluation, however he was not argumentative and acquiesced to every request that was made of him he did not want to miss work although he did call his job to let them know he would not be coming in this AM pt spoke with Divya, mental health worker, at [facility] via telemedicine and denied self harm he has been from his for 3 months and is filing for divorce smoked 1 ppd, drinks alcohol on weekends, denies street drugs TDaP given, dressing applied to wrist d/w Dr Franco psychiatrist at [place] who accepted pt in transfer 72-hour hold papers signed by myself - Related Data Allergies Allergy/AdvReac Type Severity Reaction Status Date / Time No Known Allergies Allergy Verified 07/03/14 04:41 Home Meds: Home Meds Insulin Aspart [Novolog] 5 unit SQ TIDMEALS 05/26/17 [History] Insulin Glargine,Hum.Rec.Anlog [Toujeo Solostar] 20 units SQ BEDTIME 05/26/17 [ History] atorvaSTATin [Lipitor] 20 mg PO BEDTIME 05/26/17 [History] Past Medical History - Past Health History Medical/Surgical History: Denies Medical/Surgical History HEENT History: Reports: None Cardiovascular History: Reports: None Respiratory History: Reports: None Gastrointestinal History: Reports: None Genitourinary History: Reports: None Musculoskeletal History: Reports: None Neurological History: Reports: None Psychiatric History: Reports: Anxiety Endocrine/Metabolic History: Reports: Diabetes, Type II Hematologic History: Reports: None Immunologic History: Reports: None Oncologic (Cancer) History: Reports: None Dermatologic History: Reports: None - Infectious Disease History Infectious Disease History: Reports: Chicken Pox - Past Surgical History Head Surgeries/Procedures: Reports: None HEENT Surgical History: Reports: None Cardiovascular Surgical History: Reports: None Respiratory Surgical History: Reports: None GI Surgical History: Reports: None Male Surgical History: Reports: None Endocrine Surgical History: Reports: None Neurological Surgical History: Reports: None Musculoskeletal Surgical History: Reports: None Oncologic Surgical History: Reports: None Dermatological Surgical History: Reports: None Social & Family History - Family History Family Medical History: Noncontributory - Tobacco Use Smoking Status *Q: Current Every Day Smoker Years of Tobacco use: 15 Packs/Tins Daily: 1 - Caffeine Use Caffeine Use: Reports: None - Alcohol Use Days Per Week of Alcohol Use: 2 Number of Drinks Per Day: 3 Total Drinks Per Week: 6 - Recreational Drug Use Recreational Drug Use: No ED ROS GENERAL - Review of Systems Review Of Systems: See Below Constitutional: Reports: No Symptoms HEENT: Reports: No Symptoms Respiratory: Reports: No Symptoms Cardiovascular: Reports: No Symptoms Endocrine: Reports: No Symptoms GI/Abdominal: Reports: No Symptoms : Reports: No Symptoms Musculoskeletal: Reports: No Symptoms Skin: Reports: No Symptoms Neurological: Reports: No Symptoms Psychiatric: Reports: Suicidal Ideation Hematologic/Lymphatic: Reports: No Symptoms Immunologic: Reports: No Symptoms ED EXAM, SKIN/RASH Exam: See Below Exam Limited By: No Limitations General Appearance: Alert, WD/WN, No Apparent Distress Eye Exam: Bilateral Eye: Normal Inspection Ears: Normal External Exam, Normal Canal Nose: Normal Inspection, Normal Mucosa, No Blood Throat/Mouth: Normal Inspection, Normal Lips, Normal Teeth, No Airway Compromise Head: Atraumatic, Normocephalic Neck: Normal Inspection, Supple, Non-Tender, Full Range of Motion Respiratory/Chest: No Respiratory Distress, Lungs Clear, Normal Breath Sounds, No Accessory Muscle Use, Chest Non-Tender Cardiovascular: Regular Rate, Rhythm, No Edema, No Gallop, No JVD, No Murmur, No Rub GI/Abdominal: Soft, Non-Tender, No Distention Back Exam: Normal Inspection, Full Range of Motion, NT Extremities: Normal Inspection, Normal Range of Motion, Non-Tender, No Pedal Edema Neurological: Alert, Oriented, CN II-XII Intact, Normal Gait, No Motor/Sensory Deficits Psychiatric: Anxious, Other (denies SI/HI, however is not being truthful re nature of his wrist injury) Skin: Other (there are 8 superficial cuts across L wrist in close proximity, there is a full thickness parallel cut of 2.5 cm with a 3 mm gap that was closed with a dressing, no active bleeding although a blood clot was present, clean, no f.b.) Lymphatic: No Adenopathy Course - Vital Signs Last Recorded V/S: Last Vital Signs Temp 36.4 C 08/23/18 00:06 Pulse 87 08/23/18 00:06 Resp 18 08/23/18 00:06 BP 135/95 H 08/23/18 00:06 Pulse Ox 99 08/23/18 00:06 - Orders/Labs/Meds Orders: Active Orders 24 hr Category Date Time Status Vaccines to be Administered [RC] PER UNIT ROUTINE Care 08/23/18 00:48 Active Labs: Laboratory Tests 08/23/18 08/23/18 08/23/18 Range/Units 01:40 01:40 01:40 WBC 9.0 (4.5-12.0) X10-3/uL RBC 4.53 (4.30-5.75) x10(6)uL Hgb 13.9 D (11.5-15.5) g/dL Hct 40.3 D (30.0-51.3) % MCV 89.0 (80-96) fL MCH 30.6 (27.7-33.6) pg MCHC 34.4 (32.2-35.4) g/dL RDW 12.5 (11.5-15.5) % Plt Count 235 (125-369) X10(3)uL MPV 8.9 (7.4-10.4) fL Neut % (Auto) 61.2 (46-82) % Lymph % (Auto) 26.5 (13-37) % [place] % (Auto) 9.2 (4-12) % Eos % (Auto) 2 (1.0-5.0) % Baso % (Auto) 1 (0-2) % Neut # (Auto) 5.4 (1.6-8.3) # Lymph # (Auto) 2.4 (0.6-5.0) # [place] # (Auto) 0.8 (0.0-1.3) # Eos # (Auto) 0.2 (0.0-0.8) # Baso # (Auto) 0.1 (0.0-0.2) # Sodium 139 (135-145) mmol/L Potassium 4.1 (3.5-5.3) mmol/L Chloride 102 (100-110) mmol/L Carbon Dioxide 27 (21-32) mmol/L BUN 30 H (7-18) mg/dL Creatinine 1.0 (0.70-1.30) mg/dL Est Cr Clr Drug Dosing TNP Estimated GFR (MDRD) > 60 (>60) BUN/Creatinine Ratio 30.0 H (9-20) Glucose 281 H (80-116) mg/dL Calcium 8.8 (8.6-10.2) mg/dL Total Bilirubin 0.3 (0.1-1.3) mg/dL AST 19 (5-25) IU/L ALT 32 (12-36) U/L Alkaline Phosphatase 112 (56-112) IU/L Total Protein 7.9 (6.0-8.0) g/dL Albumin 3.3 L (3.5-5.2) g/dL Globulin 4.6 g/dL Albumin/Globulin Ratio 0.7 TSH, Ultra Sensitive 4.58 H (0.36-3.74) IU/mL Urine Color (YELLOW) Urine Appearance (CLEAR) Urine pH (5.0-6.5) Ur Specific [place] (1.010-1.025) Urine Protein (NEGATIVE) mg/dL Urine Glucose (UA) (NEGATIVE) mg/dL Urine Ketones (NEGATIVE) mg/dL Urine Occult Blood (NEGATIVE) Urine Nitrite (NEGATIVE) Urine Bilirubin (NEGATIVE) Urine Urobilinogen (NEGATIVE) mg/dL Ur Leukocyte Esterase (NEGATIVE) Salicylates 1.0 L (2.8-20.0) mg/dL Urine Opiates Screen (NEGATIVE) Ur Oxycodone Screen (NEGATIVE) Ur Propoxyphene Screen (NEGATIVE) Acetaminophen < 2 L (10-30) ug/mL Ur Barbituates Screen (NEGATIVE) Ur Tricyclics Screen (NEGATIVE) Ur Phencyclidine Scrn (NEGATIVE) Ur Amphetamine Screen (NEGATIVE) Urine MDMA Screen (NEGATIVE) U Benzodiazepines Scrn (NEGATIVE) U Cocaine Metab Screen (NEGATIVE) U Marijuana (THC) Screen (NEGATIVE) Ethyl Alcohol < 0.03 (<0.03) % 08/23/18 08/23/18 Range/Units 02:35 02:35 WBC (4.5-12.0) X10-3/uL RBC (4.30-5.75) x10(6)uL Hgb (11.5-15.5) g/dL Hct (30.0-51.3) % MCV (80-96) fL MCH (27.7-33.6) pg MCHC (32.2-35.4) g/dL RDW (11.5-15.5) % Plt Count (125-369) X10(3)uL MPV (7.4-10.4) fL Neut % (Auto) (46-82) % Lymph % (Auto) (13-37) % [place] % (Auto) (4-12) % Eos % (Auto) (1.0-5.0) % Baso % (Auto) (0-2) % Neut # (Auto) (1.6-8.3) # Lymph # (Auto) (0.6-5.0) # [place] # (Auto) (0.0-1.3) # Eos # (Auto) (0.0-0.8) # Baso # (Auto) (0.0-0.2) # Sodium (135-145) mmol/L Potassium (3.5-5.3) mmol/L Chloride (100-110) mmol/L Carbon Dioxide (21-32) mmol/L BUN (7-18) mg/dL Creatinine (0.70-1.30) mg/dL Est Cr Clr Drug Dosing Estimated GFR (MDRD) (>60) BUN/Creatinine Ratio (9-20) Glucose (80-116) mg/dL Calcium (8.6-10.2) mg/dL Total Bilirubin (0.1-1.3) mg/dL AST (5-25) IU/L ALT (12-36) U/L Alkaline Phosphatase (56-112) IU/L Total Protein (6.0-8.0) g/dL Albumin (3.5-5.2) g/dL Globulin g/dL Albumin/Globulin Ratio TSH, Ultra Sensitive (0.36-3.74) IU/mL Urine Color Yellow (YELLOW) Urine Appearance Clear (CLEAR) Urine pH 5.0 (5.0-6.5) Ur Specific [place] 1.015 (1.010-1.025) Urine Protein 500 H (NEGATIVE) mg/dL Urine Glucose (UA) >1000 H (NEGATIVE) mg/dL Urine Ketones Negative (NEGATIVE) mg/dL Urine Occult Blood Large H (NEGATIVE) Urine Nitrite Negative (NEGATIVE) Urine Bilirubin Negative (NEGATIVE) Urine Urobilinogen Normal (NEGATIVE) mg/dL Ur Leukocyte Esterase Negative (NEGATIVE) Salicylates (2.8-20.0) mg/dL Urine Opiates Screen Negative (NEGATIVE) Ur Oxycodone Screen Negative (NEGATIVE) Ur Propoxyphene Screen Negative (NEGATIVE) Acetaminophen (10-30) ug/mL Ur Barbituates Screen Negative (NEGATIVE) Ur Tricyclics Screen Negative (NEGATIVE) Ur Phencyclidine Scrn Negative (NEGATIVE) Ur Amphetamine Screen Negative (NEGATIVE) Urine MDMA Screen Negative (NEGATIVE) U Benzodiazepines Scrn Negative (NEGATIVE) U Cocaine Metab Screen Negative (NEGATIVE) U Marijuana (THC) Screen Negative (NEGATIVE) Ethyl Alcohol (<0.03) % Meds: Medications Discontinued Medications Generic Name Dose Route Start Last Admin Trade Name Freq PRN Reason Stop Dose Admin Diphtheria/Tetanus/Acell Pertussis 0.5 ml 08/23/18 00:48 08/23/18 00:53 Adacel IM 08/23/18 00:49 0.5 ml .ONCE ONE Administration Departure - Departure Time of Disposition: 03:26 Disposition: DC/Tfer to Psych Hosp/Unit [facility] Condition: Fair Clinical Impression: Suicide attempt, Laceration of wrist, left - Discharge Information *PRESCRIPTION DRUG MONITORING PROGRAM REVIEWED*: Not Applicable *COPY OF PRESCRIPTION DRUG MONITORING REPORT IN PATIENT YANIV: Not Applicable Referrals: Isac Boogie MD [Primary Care Provider] - - My Orders Last 24 Hours: My Active Orders 08/23/18 00:48 Vaccines to be Administered [RC] PER UNIT ROUTINE - Assessment/Plan Last 24 Hours: My Active Orders 08/23/18 00:48 Vaccines to be Administered [RC] PER UNIT ROUTINE
[2018-08-23 06:28] VITALS: BP 154/95
== END 2018-08-23 04:10 ==
LOC: FB.ED 00:06
DX: S61.512A Laceration without foreign body of left wrist, initial encounter (principal); F17.210 Nicotine dependence, cigarettes, uncomplicated; E11.9 Type 2 diabetes mellitus without complications; Z79.4 Long term (current) use of insulin; Z23 Encounter for immunization; X78.8XXA Intentional self-harm by other sharp object, initial encounter
CPT/HCPCS: 36415; 80053; 80305-QW; 81003; 84443; 85025; 90471; 90472; 90715; 99285; G0480